=== PATIENT | male | born 1930 | race Caucasian/White ===

== ENCOUNTER → 2020-05-25 | Outpatient (CLI) | payer MEDICARE ==
[~2020-05-25] MED LIST: ALBUTEROL INH PO; AMLODIPINE BESY10 MG PO; ASA81BEC PO; ASPIRIN325 PO; AZOPT OPHTH1 %/10 M1 OP; BRIMONIDINE TAR1 BO1 OP; BUDEPRION SR150 MG PO; CALCIUM CARBON500 MG PO; CARVEDILOL3.125 MG PO; COLACE 100 MG100 MG PO; COLACE100 MG PO; DEMADEX20 MG PO; FINASTERIDE5 MG PO; FLAX OIL1000 MG; GAS RELIEF80 MG PO; HYDRALAZINE HC100 MG PO; HYDROCODON-ACE1 EAC7 PO; HYTRIN10 MG PO; KLOR-CON M2020 MEQ PO; LACTULOSE10 GM/152; LIDOCAINE PAIN1 EACH INTRADERM; METAMUCIL POWD288 GM; METAMUCIL0.4 GM PO; MILK OF MA400 MG/5 M PO; MIRALAX255 GM PO; NITROGLYCERIN0.3 M1 SUBLING; OXYCONTIN10 M1 PO; PAXIL20 MG PO; PHILLIPS500 MG; PRAVASTATIN SOD20 MG PO; PREDNISOLONE ACE5 ML LT. EYE; PRILOSEC 20 MG20 MG PO; PROTONIX40 M2 PO; REFRESH TEARS15 ML OPHTHALMIC; REMERON15 M2 PO; SENNA PO; SPIRIVA18 MCG INH; THEREMS-M1 EACH PO; TIZANIDINE HCL2 M1 PO; TYLENOL325 MG PO; VENTOLIN HFA 1818 GM INH; VITAMIN B12-FO1 EAC1 PO; VITAMIN D310 MC2 PO; ZINC SULFATE220 MG PO; ZOCOR PO; ZOFRAN4 MG PO; ZOLOFT25 MG PO
== END ==
LOC: M.PC 09:16
PROVIDERS: ATTEND Physical Medicine & Rehabilitation
DX: M47.26 Other spondylosis with radiculopathy, lumbar region (principal); M79.604 Pain in right leg; M47.818 Spondylosis without myelopathy or radiculopathy, sacral and sacrococcygeal region; M53.3 Sacrococcygeal disorders, not elsewhere classified